=== PATIENT | female | born 1995 | race Caucasian/White ===

== ENCOUNTER 2019-11-26 10:25 | Emergency (ER) | payer BC ==
--- NOTE | 2019-11-26 10:58 | TELE ---
HPI Do you have fever,cough or shortness of breath?: Yes - General Reason For Visit: COVID 19 TEST History Source: Patient Exam Limitations: No Limitations - History of Present Illness 11/26/19 10:53 24-year-old female evaluated via telemedicine, denies past medical history requesting covid testing. Reports nasal congestion, sore throat, dry cough for 2 days. Reports loss of taste and smell, cough, body aches, fever and chills in April 2019 believes she was positive for COVID at that time. She was unable to have COVID testing in April 2019. In June 2019 reports that she had negative antibodies on blood test. Patient denies any known contacts with COVID. Denies any other complaints. ROS: as above PE: Speaking full and clear sentences Discharge Diagnosis at time of Disposition: Suspected COVID-19 virus infection - Referrals - Patient Instructions Discharge Instructions: [facility]-Coronavirus Instructions - Discharge Disposition: HOME Condition at time of Disposition: Stable
== END 2019-11-26 10:58 | disposition home or self-care (01) ==
LOC: JVIRT 10:25
DX: Z03.818 Encounter for observation for suspected exposure to other biological agents ruled out (principal)
CPT/HCPCS: C9803; Q3014-GT; U0003